=== PATIENT | female | born 1970 | race Caucasian/White ===

== ENCOUNTER 2022-12-20 23:19 | Emergency (ER) | payer SELFPAY ==
[2022-12-20 23:24] VITALS: BP 128/79; PULSE 109; RESP 16; TEMP 37.2; O2SAT 100
--- NOTE | 2022-12-21 00:41 | ED.SKABFB ---
HPI - Skin/Abscess/Foreign Bdy General Chief complaint: Skin/Abscess/Foreign Body Stated complaint: lymp nodes in armpit that burst Time Seen by Provider: 12/21/22 00:03 Source: patient Mode of arrival: ambulatory Limitations: no limitations History of Present Illness HPI narrative: Patient is a 52-year-old female who presents to the ED with report of an abscess to her right armpit. Patient reports she has had a lump in her right axillary region for the last several weeks. It began increasing in size and pain last , to the point that she was hardly able to rest her arm down at her side. She states she went to [facility] Wednesday and was referred to a surgeon. She was not rx'd antibiotics. Patient states tonight the lump began draining spontaneously. It has decreased in size considerably since draining. She reports subjective fevers, denies nausea or vomiting. Related Data Allergies Allergy/AdvReac Type Severity Reaction Status Date / Time Penicillins Allergy Unknown Verified 12/20/22 23:30 Review of Systems Review of Systems: CONSTITUTIONAL: See HPI. SKIN: See HPI. MUSCULOSKELETAL: See HPI. NEUROLOGIC: Denies tingling, numbness, or weakness. All systems reviewed & are unremarkable except as noted in HPI and below Exam Narrative: GENERAL: Appears older than stated age, thin, non-toxic, in no acute distress. HEAD: Normocephalic, atraumatic. NECK: Supple. No adenopathy, no masses. RESPIRATORY: Airway patent, respirations nonlabored. Clear to auscultation bilaterally, no rales, rhonchi, wheezing. CARDIOVASCULAR: Regular rate and rhythm without murmurs, rubs, or gallops. Radial pulses 2+ and equal bilaterally. MUSCULOSKELETAL: Moves all extremities. Strength/ROM intact without gross deformities. SKIN: Warm, dry, normal color. No rashes. Right axillary region with large focal abscess, pustular head draining purulent material. Surrounding skin warmth, erythema, inflammation, induration. Smaller area of induration just superior to large abscess still in axillary region. Minimal fluctuance palpated over this area. NEURO: A&O X3. Speech clear. Cranial nerves II-XII grossly intact. Steady gait. No ataxic movements. PSYCHIATRIC: Appropriate mood and affect. Normal interaction. Course Vital Signs Vital signs: Vital Signs Temperature 98.9 F 12/20/22 23:24 Pulse Rate 109 H 12/20/22 23:24 Respiratory Rate 16 12/20/22 23:24 Blood Pressure 128/79 12/20/22 23:24 Pulse Oximetry 100 12/20/22 23:24 Oxygen Delivery Room Air 12/20/22 23:24 Temperature 98.9 F 12/20/22 23:24 Pulse Rate 84 12/21/22 01:38 Respiratory Rate 16 12/21/22 01:38 Blood Pressure 131/90 12/21/22 01:38 Pulse Oximetry 100 12/21/22 01:38 Oxygen Delivery Room Air 12/20/22 23:24 Procedures Abscess I/D other: Date of Incision: 12/21/22 Time of Incision: 00:41 Side (if applicable): right (axillary) Sedation/analgesia: none Local Anesthetic: lidocaine 1% Amount of anesthesia used (mL): 4 Technique: incised with #11 blade and probed loculations Amount of fluid expressed (mL): 8 Irrigation: Yes Packing used?: iodoform I&D Results: Pus and Blood Complications: other (none) MDM - Skin/Abscess/Foreign Bdy MDM Narrative Medical decision making narrative: Exam consistent with 2 abscesses to right axillary region, one much larger. I&D performed to both abscesses, packing placed to larger abscess. Wound culture obtained from larger abscess. Only very small amount of pus drained from smaller abscess. Discussed wound care and reasons to return. Patient was started on Bactrim. She has follow-up planned with a general surgeon from [facility]. Discharged in stable condition. Vital signs stable at time of D/C. Medical Records Attestation: I reviewed the patient's medical records. Discharge Plan Discharge Clinica
[2022-12-21] MEDS: ACETAMINOPHEN 325 MG TABLET 650 MG PO (00:53)
[2022-12-21] MEDS: SULFAMETHOXAZOLE/TRIMETHOPRIM 800/160 MG DS TABLET 1 TAB PO (00:53)
[2022-12-21 01:38] VITALS: BP 131/90; PULSE 84; RESP 16; O2SAT 100
== END 2022-12-21 01:39 | disposition home or self-care (01) ==
PROVIDERS: Emergency Provider Physician Assistant
DX: L02.411 Cutaneous abscess of right axilla (principal)
CPT/HCPCS: 10061; 87070; 87147; 87186; 87205; 99283; A9270

== ENCOUNTER 2022-12-23 14:19 | Emergency (ER) | payer OTHER, SELFPAY ==
[2022-12-23 14:28] VITALS: BP 129/80; PULSE 116; RESP 18; TEMP 36.8; O2SAT 100
--- NOTE | 2022-12-23 16:00 | ED.GENADULT ---
HPI - General Adult General Chief complaint: Recheck/Abnormal Lab/Rx <Sandra Miller August, CULINARY INSTRUCTOR - Last Filed: 12/23/22 18:44> Stated complaint: mrsa <Sandra Miller August, CULINARY INSTRUCTOR - Last Filed: 12/23/22 18:44> Time Seen by Provider: 12/23/22 15:46 <Sandra Miller August, CULINARY INSTRUCTOR - Last Filed: 12/23/22 18:44> History of Present Illness HPI narrative: Cleopatra Frankel is a 52 y/o female who presents with reports of having an abscess drained here 3 days ago and her culture resulted MRSA and her PCP sent her here to be treated. She also adds that packing was placed in the abscess and she was supposed to remove it and she never did and she believes that it is still in there. <Sandra Miller August, CULINARY INSTRUCTOR - Last Filed: 12/23/22 18:44> Related Data Allergies/adverse reactions: Allergies Allergy/AdvReac Type Severity Reaction Status Date / Time Penicillins Allergy Unknown Verified 12/20/22 23:30 <Sandra Miller August, CULINARY INSTRUCTOR - Last Filed: 12/23/22 18:44> Review of Systems Review of Systems: CONSTITUTIONAL: Denies fever, chills, or sweats. EYES: Denies visual changes, redness, or discharge. ENT: Denies rhinorrhea, congestion, sore throat, or otalgia. CARDIOVASCULAR: Denies chest pain, palpitations, or edema. RESPIRATORY: Denies cough or dyspnea. GASTROINTESTINAL: Denies abdominal pain, nausea, vomiting, or diarrhea. GENITOURINARY: Denies dysuria or hematuria. SKIN: Denies rash or itching. Complains of infection under her right arm that she is still taking antibiotics for. MUSCULOSKELETAL: denies muscle pain/ joint pain NEUROLOGIC: Denies headache, numbness, dizziness, or weakness. PSYCHIATRIC: Denies anxiety or depression. <Sandra Miller August, CULINARY INSTRUCTOR - Last Filed: 12/23/22 18:44> Exam Narrative: GENERAL: Well-appearing, well-nourished, and in no acute distress. HEAD: Normocephalic, atraumatic. EYES: PERRLA and EOMI. ENT: Nares clear, no rhinorrhea or epistaxis. Mucous membranes moist. Oropharynx without tonsillar hypertrophy exudate or other lesions. Bilateral TMs pearly breaux nonbulging NECK: Supple. No adenopathy or masses. No carotid bruits or JVD CHEST: Clear to auscultation. No respiratory distress. No wheezes rales or rhonchi HEART: Regular rate and rhythm. No murmur heard. Normal peripheral pulses. ABDOMEN: Soft, nontender, nondistended, normal active bowel sounds. EXTREMITIES: Normal range of motion. No edema. SKIN: Warm, dry, no rash.- area under her right arm noted to have an abscess that is healing without evidence of packing in place NEURO: No focal deficits. Alert and oriented x3. PSYCH: Normal mood and affect. <Sandra Smith, CULINARY INSTRUCTOR - Last Filed: 12/23/22 18:44> Course STRUCTURER/PA Physician Supervision This visit was performed by both a physician and an APC. I performed all aspects of the MDM as documented. he did evaluate the patient I did a bedside ultrasound over the wound. Soft tissue appears consistent with continued small abscess and cellulitis. No obvious foreign body consistent with packing is appreciated. <Corry Paul MD - Last Filed: 12/23/22 23:15> Vital Signs Vital signs: Vital Signs Temperature 98.2 F 12/23/22 14:28 Pulse Rate 116 H 12/23/22 14:28 Respiratory Rate 18 12/23/22 14:28 Blood Pressure 129/80 12/23/22 14:28 Pulse Oximetry 100 12/23/22 14:28 Oxygen Delivery Room Air 12/23/22 14:28 Temperature 98.2 F 12/23/22 14:28 Pulse Rate 116 H 12/23/22 14:28 Respiratory Rate 18 12/23/22 14:28 Blood Pressure 129/80 12/23/22 14:28 Pulse Oximetry 100 12/23/22 14:28 Oxygen Delivery Room Air 12/23/22 14:28 <Sandra Smith CULINARY INSTRUCTOR - Last Filed: 12/23/22 18:44> Vital Signs Temperature 98.2 F 12/23/22 14:28 Pulse Rate 116 H 12/23/22 14:28 Respiratory Rate 18 12/23/22 14:28 Blood Pressure 129/80 12/23/22 14:28 Pulse Oximetry 100 12/23/22 14:28 Oxygen Delivery Room Air 12/23/22 14:28 Temperature 98.2 F 12/23/22 14:28 Pulse Rate 116 H 12/23
[2022-12-23] MEDS: LIDOCAINE HCL 2% LOCAL INJ 20 ML VIAL (17:18)
== END 2022-12-23 17:19 | disposition home or self-care (01) ==
PROVIDERS: Emergency Provider Nurse Practitioner Family
DX: L02.411 Cutaneous abscess of right axilla (principal); B95.62 Methicillin resistant Staphylococcus aureus infection as the cause of diseases classified elsewhere
CPT/HCPCS: 99282